=== PATIENT | female | born 1955 | race Caucasian/White ===

== ENCOUNTER → 2016-11-12 | Outpatient (CLI) | payer BC ==
[~2016-11-12] MED LIST: ACCUPRIL10 MG PO; CENESTIN1.25 MG PO; EXCEDRIN TENSION HA PO; K-1010 MEQ PO; LASIX20 MG PO; TYLENOL 500MG500 MG PO; TYLENOL W/COD1 UDTAB PO
== END ==
LOC: COL.CARD 07:23
DX: R00.2 Palpitations (principal)

== ENCOUNTER → 2017-02-24 | Outpatient (CLI) | payer BC | LOC: COL.VAS 08:12 | DX: Z01.812 Encounter for preprocedural laboratory examination (principal); R90.82 White matter disease, unspecified; R51 Headache; R55 Syncope and collapse | CPT/HCPCS: A9585 ==

== ENCOUNTER 2017-03-14 08:37 | Outpatient (CLI) | payer BC ==
[2017-03-14] VITALS (8 sets, daily range): BP systolic 108–135; BP diastolic 71–84; PULSE 64–67
[~2017-03-14] VITALS: Ht 160 cm; Wt 82.9 kg
[~2017-03-14 08:37] MED LIST changes: -ACCUPRIL10 MG PO; +ACCUPRIL20TAB PO; +GLUCOPHAGE1000 MG PO; -K-1010 MEQ PO; +K-DUR20 MEQ PO; +LASIX 20MG TABL20 MG PO; +LEXAPRO 10MG10 MG PO; +LIPITOR 40MG TA40 MG PO; +MAGNESIUM500 MG PO; +MICRONASE1.25 MG PO; +NATURE'S BLEND100 M1 PO; +THE MEDICINE S200 M2 PO; +TOPAMAX 25MG25 M1 PO
[2017-03-14 11:13] LABS: GLUCOSE,CSF 75 mg/dL (40-70); TOTAL PROTEIN,CSF 54 mg/dL (15-45)
[2017-03-14 11:20] LABS: CSF APPEARANCE CLEAR; CSF COLOR COLORLESS; CSF MONONUCLEAR 93 % (70-100); CSF POLYMORPHONUCLEAR 7 % (0-6); CSF RBC 0 /mm3 (0-0)
== END 2017-03-14 12:36 | disposition home or self-care (01) ==
LOC: COL.RAD 08:37
PROVIDERS: Psychiatry & Neurology Neurology
DX: G93.2 Benign intracranial hypertension (principal)

== ENCOUNTER 2018-02-07 14:25 | Emergency (ER) | payer BC ==
[~2018-02-07] VITALS: Ht 160 cm; Wt 72.7 kg
[2018-02-07 14:34] VITALS: TEMP 97.5
[2018-02-07 15:26] LABS: BASO % 0.4 % (0.0-2.0); EOS % 0.4 % (0-4.0); GRAN # 8.3 (1.4-6.5); GRAN % 74.1 % (42.2-75.2); HEMATOCRIT 42.3 % (37.0-47.0); LYMPH # 2.1 (1.2-3.4); LYMPH % 18.8 % (20.0-51.0); MEAN CELL VOLUME 95 fl (80.0-100.0); MEAN CORPUSCULAR HEMOGLOBIN 31 pg (27.0-31.0); MEAN CORPUSCULAR HGB CONC 33 g/dl (33.0-37.0); MEAN PLATELET VOLUME 10.3 fl (7.4-10.4); MONO # 0.7 (0.1-0.6); MONO % 5.9 % (1.7-9.3); PLATELET COUNT 312 K/mm3 (130-400); RED BLOOD COUNT 4.47 M/mm3 (4.10-5.30); REDCELL DISTRIBUTION WIDTH-CV 12.8 % (11.5-14.5)
[2018-02-07 15:31] LABS: ALBUMIN 4.7 gm/dL (3.5-5.0); BILIRUBIN,TOTAL 0.4 mg/dL (0.0-1.0); CALCIUM 9.6 mg/dL (8.4-10.2); CREATININE, serum 1.13 mg/dL (0.52-1.25); POTASSIUM 4.1 mmol/L (3.4-5.0); TOTAL PROTEIN 7.7 gm/dL (6.4-8.2)
[2018-02-07] MEDS ORDERED: ZOFRAN ODT4 MG PO (15:51)
[2018-02-07 17:09] VITALS: BP 108/75; PULSE 60
== END 2018-02-07 17:10 | disposition home or self-care (01) ==
LOC: COL.ER 14:25
PROVIDERS: Emergency Medicine
DX: R19.7 Diarrhea, unspecified (principal); R55 Syncope and collapse; E11.9 Type 2 diabetes mellitus without complications; I10 Essential (primary) hypertension; E78.5 Hyperlipidemia, unspecified; Z79.84 Long term (current) use of oral hypoglycemic drugs
CPT/HCPCS: J2405; J7030

== ENCOUNTER → 2018-06-29 | Emergency (ER) | payer BC ==
[~2018-06-29] VITALS: Ht 160 cm; Wt 68.2 kg
[~2018-06-29] MED LIST changes: +PERCOCET 325 MG1 TA2 PO; +ZOFRAN ODT4 MG PO
[2018-06-29 20:42] VITALS: TEMP 98.1
[2018-06-29 22:20] VITALS: BP 127/89; PULSE 93
== END ==
LOC: COL.ER 19:22
DX: S42.412A Displaced simple supracondylar fracture without intercondylar fracture of left humerus, initial encounter for closed fracture (principal); I10 Essential (primary) hypertension; E78.5 Hyperlipidemia, unspecified; E11.9 Type 2 diabetes mellitus without complications; Z79.84 Long term (current) use of oral hypoglycemic drugs; W11.XXXA Fall on and from ladder, initial encounter; Y92.009 Unspecified place in unspecified non-institutional (private) residence as the place of occurrence of the external cause
CPT/HCPCS: J1170

== ENCOUNTER → 2018-11-01 | Outpatient (CLI) | payer BC | LOC: MC.RAD 09:36 | DX: Z12.31 Encounter for screening mammogram for malignant neoplasm of breast (principal); G47.33 Obstructive sleep apnea (adult) (pediatric) ==

== ENCOUNTER → 2020-09-16 | Outpatient (CLI) | payer BC | LOC: MC.RAD 16:15 | DX: Z12.31 Encounter for screening mammogram for malignant neoplasm of breast (principal) ==

== ENCOUNTER → 2021-06-15 | Outpatient (CLI) | payer BC | LOC: COL.RAD 07:03 | DX: R90.82 White matter disease, unspecified (principal); R55 Syncope and collapse | CPT/HCPCS: A9575 ==

== ENCOUNTER → 2021-10-08 | Outpatient (CLI) | payer MEDICARE, BC | LOC: MC.RAD 07:47 | DX: Z12.31 Encounter for screening mammogram for malignant neoplasm of breast (principal); E11.69 Type 2 diabetes mellitus with other specified complication ==

== ENCOUNTER → 2022-11-18 | Outpatient (CLI) | payer MEDICARE, BC | LOC: MC.RAD 11:41 | DX: Z12.31 Encounter for screening mammogram for malignant neoplasm of breast (principal) ==

== ENCOUNTER → 2023-12-06 | Outpatient (CLI) | payer MEDICARE, BC | LOC: MC.RAD 08:31 | DX: Z12.31 Encounter for screening mammogram for malignant neoplasm of breast (principal) ==